=== PATIENT | male | born 2000 | race African-American/Black ===

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

== ENCOUNTER 2021-05-28 09:51 | Emergency (ER) | payer OTHER ==
[2021-05-28] MEDS ORDERED: DEXAMETHASONE 10 MG/ML VIAL IM STA (10:05)
[2021-05-28] MEDS ORDERED: HYDROcod/ACETAM 5/325 MG TABLET PO STA (10:05)
[2021-05-28] MEDS ORDERED: KETOROLAC 60 MG/2 ML VIAL IM STA (10:05)
--- NOTE | 2021-05-28 10:08 | ED Physician Documentation ---
History of Present Illness - Stated complaint Stated Complaint: LT LEG WEAKNESS - Chief complaint Chief Complaint: General - History obtained from History obtained from: Patient, EMS - Additonal information Additional information: Patient is brought to the emergency department by EMS for chief complaint of severe left hip pain. The patient states is been playing a lot of flag football lately and played 4 games in 1 day several days ago. He then took 2 days off and played another game yesterday. He states that he did not have any distinct injury, and has No prior history of injury to this hip. He states it was aching throughout the day yesterday, but then when he played flag football, it actually felt better. He then woke up this morning and had severe pain deep inside the hip whenever he tried to bear weight. He states that also if he plants his feet and pivots to the left that makes it hurt as well. He can lay in the bed and flex at the hip and knee without bearing weight and this causes some pain but not nearly as much as when he is standing up. No other pain or injury. No chest pain or shortness of breath. Patient has a history of sickle cell disease, but states he does not feel like he is having a flareup. No other complaints at this time. Review of Systems Ten Systems: 10 systems reviewed and negative Constitutional: reports: Reviewed and negative Eyes: reports: Reviewed and negative Ears: reports: Reviewed and negative Nose: reports: Reviewed and negative Throat: reports: Reviewed and negative Cardiac: reports: Reviewed and negative Respiratory: reports: Reviewed and negative GI: reports: Reviewed and negative : reports: Reviewed and negative Skin: reports: Reviewed and negative Musculoskeletal: reports: Joint pain, Pain with weight bearing Neurologic: reports: Reviewed and negative Psychiatric: reports: Reviewed and negative Endocrine: reports: Reviewed and negative Immunocompromised: reports: Reviewed and negative PD PAST MEDICAL HISTORY - Past Medical History Cardiovascular: None Respiratory: None Neuro: None Endocrine/Autoimmune: None GI: None : None HEENT: None Psych: None Musculoskeletal: None Derm: None Other Past Medical History: sickle cell trait in family - Past Surgical History Past Surgical History: No - Present Medications Home Medications: Ambulatory Orders Medication Instructions Recorded Confirmed HYDROcod/ACETAM 5/325 [[place] 5/325] 1 - 2 tablet PO Q6H PRN #14 tablet 05/28/21 Ibuprofen [Motrin] 1 tablet PO Q8H PRN #30 tablet 05/28/21 predniSONE [Prednisone 21-TAB dose 10 mg PO UD #1 each 05/28/21 pack] - Allergies Allergies/Adverse Reactions: Allergies Allergy/AdvReac Type Severity Reaction Status Date / Time No Known Drug Allergies Allergy Verified 05/19/19 09:55 - Social History Does the pt smoke?: No Smoking Status: Never smoker Does the pt drink ETOH?: No Does the pt have substance abuse?: No - Immunizations Immunizations are current?: Yes - POLST Patient has POLST: No PD ED PE NORMAL - Vitals Vital signs reviewed: Yes - General General: Alert and oriented X 3, No acute distress, Well developed/nourished - HEENT HEENT: Atraumatic, PERRL, EOMI, Moist mucous membranes - Neck Neck: Supple, no meningeal sign - Cardiac Cardiac: RRR, No murmur, Strong equal pulses - Respiratory Respiratory: No respiratory distress - Abdomen Abdomen: Soft, Non tender, Non distended - Back Back: No spinal TTP - Derm Derm: Normal color, Warm and dry, No rash - Extremities Extremities: No deformity, No tenderness to palpate, No edema, Other (Patient is able to fully flex at the left hip, but this causes pain.) - Neuro Neuro: Alert and oriented X 3, hand ii blocker 2-12 intact, No motor deficit, No sensory deficit, Normal speech - Psych Psych: Normal mood, Normal affect Results - Vitals Vitals: Vital Signs - 24 hr 05/28/21 05/28/21 09:57 11:23 Temperature 36.9 C Heart Rate 54 L 53 L Respiratory 16 16 Rate Blood Pressure 124/78 138/87 H O2 Saturation 100 100 Oxygen O2 Source Room air - Rads (name of study) L hip XR Radiology: Final report received, EMP read indepedently, See rad report (Irregularity of acetabulum. No fx.) PD MEDICAL DECISION MAKING - ED course Complexity details: reviewed results, re-evaluated patient, considered differential, d/w patient ED course: Patient was treated symptomatically in the emergency department and worked up with an x-ray of his hip. This showed some acetabular irregularity, but otherwise, unremarkable. I discussed the findings with the pt. We have discussed symptomatic management at home, as well as the usual indications for return. Pt has been given a pair of crutches. Departure - Departure Disposition: Home, Self Care Clinical Impression: Arthritis of left hip Strain of hip Qualifiers: Encounter type: initial encounter Laterality: left Qualified Code(s): S76.012A - Strain of muscle, fascia and tendon of left hip, initial encounter Condition: Stable Instructions: Osteoarthritis Common Sites Prescriptions: Ibuprofen [Motrin] 1 tablet PO Q8H PRN #30 tablet PRN Reason: PAIN &/OR FEVER HYDROcod/ACETAM 5/325 [[place] 5/325] 1 - 2 tablet PO Q6H PRN #14 tablet PRN Reason: Pain predniSONE [Prednisone 21-TAB dose pack] 10 mg PO UD #1 each Comments: Your x-ray shows that you have some roughness of the ball of the hip joint. Although you are very young to have this finding, a risk factor for this is sickle cell disorder. This condition can cause some degree of arthritis and most likely, this is flared up by the strain to your hip caused by the heavy exercise you have done recently. You can still exercise and play football, but should let your hip rest From strenuous exercise until it is feeling better. You may walk on the hip as much as you are able. Please use the crutches to assist with this until your hip is doing better with walking. Please take the steroid and anti-inflammatory, as well as the pain medication, as needed. You should follow-up with your primary doctor to discuss whether you should see an orthopedist, should you continue to have issues with this hip. The prescription for your narcotic pain medication has been sent to the [facility] pharmacy in [place]. The paper prescription for the noncontrolled substances can be filled at [facility] or any other pharmacy of your choosing. Forms: Activity restrictions Discharge Date/Time: 05/28/21 11:26
[2021-05-28] MEDS ORDERED: IBUPROFEN 800 MG TABLET PO STA (10:13)
[2021-05-28] MEDS ORDERED: predniSONE 20 MG TABLET PO STA (10:13)
--- NOTE | 2021-05-28 10:41 | XRAY Report ---
PROCEDURE: Hip w/Pelvis 2-3V LT INDICATIONS: hip pain/can't bear wt TECHNIQUE: AP pelvis with lateral view(s) of the bilateral hip(s). COMPARISON: None. FINDINGS: Bones: No fractures or dislocations. Possible right os acetabulum although technically indeterminate . Pelvic ring appears intact. No suspicious bony lesions. Soft tissues: The visualized bowel gas pattern is normal. No suspicious soft tissue calcifications. IMPRESSION: Irregularity of the right acetabulum, suggestive of incidental os acetabulum although if the patient' s pain or other symptoms persist, consider further evaluation with MRI to exclude fracture and for ad ditional assessment. Reviewed by: Raiz Modi MD on 05/28/2021 10:40 AM PDT Approved by: Riaz Modi MD on 05/28/2021 10:40 AM PDT Station ID: [id number]
[2021-05-28 11:26] VITALS: BP 138/87
== END 2021-05-28 11:26 | disposition home or self-care (01) ==
LOC: EDUNIT# → ED 09:51
DX: S76.012A Strain of muscle, fascia and tendon of left hip, initial encounter (principal); X50.9XXA Other and unspecified overexertion or strenuous movements or postures, initial encounter; Y93.62 Activity, american flag or touch football; M16.12 Unilateral primary osteoarthritis, left hip; D57.1 Sickle-cell disease without crisis
CPT/HCPCS: 73502; 99283; 99284; A9270; J7512